=== PATIENT | female | born 1960 | race African-American/Black ===

== ENCOUNTER 2019-03-21 20:19 | Emergency (ER) | payer OTHER ==
[~2019-03-21] VITALS: Ht 172.7 cm; Wt 101.6 kg
[2019-03-21 20:28] VITALS: Ht 172.7 cm; Wt 101.6 kg
[2019-03-21 23:05] VITALS: BP 113/76
== END 2019-03-21 23:05 | disposition home or self-care (01) ==
LOC: ED 20:19
DX: S39.012A Strain of muscle, fascia and tendon of lower back, initial encounter (principal); J02.9 Acute pharyngitis, unspecified; X58.XXXA Exposure to other specified factors, initial encounter; Y93.89 Activity, other specified; Y92.89 Other specified places as the place of occurrence of the external cause; Y99.8 Other external cause status
CPT/HCPCS: J1100; J1885